=== PATIENT | male | born 1955 | race Caucasian/White ===

== ENCOUNTER 2017-06-15 13:25 | Emergency (ER) | payer BC ==
[2017-06-15 13:34] VITALS: BP 131/76
[2017-06-15] MEDS ORDERED: Oxymetazoline 0.05% Nasal Spray 15 ML Bottle NAS ONE (13:40)
--- NOTE | 2017-06-15 14:20 | EDM.PDOC ---
ED HPI GENERAL MEDICAL PROBLEM - General Chief Complaint: ENT Problem Stated Complaint: NOSE BLEED Time Seen by Provider: 06/15/17 13:31 Source of Information: Reports: Patient, Family, RN History Limitations: Reports: No Limitations - History of Present Illness INITIAL COMMENTS - FREE TEXT/NARRATIVE: Patient had had multiple recurrent nose bleeds over the last few months. He was seen in clinic here two weeks ago and had his nose cauterized and packed. He did fairly well for awhile but yesterday had a nosebleed he was able to stop with packing at home. He started bleedinga again at about 8 this morning and has been unable to get it to stop even with packing at home. He is spitting out clots and has both side of nose packed with gauze. He has not been seen by ENT yet. Onset: Today, Sudden Onset Date: 06/15/17 Onset Time: 08:00 Duration: Hour(s):, Getting Worse, Heavy, Recurring Location: Reports: Other (nose) Quality: Reports: Dull Severity: Mild Improves with: Reports: None Worsens with: Reports: None Context: Reports: Other (recurrent nosebleeds ) Associated Symptoms: Reports: No Other Symptoms Treatments FINANCIAL INTERN: Reports: Other (see below) (packing nose at home) - Related Data Allergies Allergy/AdvReac Type Severity Reaction Status Date / Time No Known Allergies Allergy Verified 06/15/17 13:26 Home Meds: Home Meds Glucosamine Sulfate 2KCl [Glucosamine] 1 tab PO DAILY 12/28/14 [History] Lisinopril [Lisinopril] 20 mg PO DAILY 12/28/14 [History] atorvaSTATin [Lipitor] 40 mg PO DAILY 02/23/15 [History] Cholecalciferol (Vitamin D3) [Vitamin D] 5,000 unit PO DAILY 10/22/15 [History] Metoprolol Succinate [Toprol XL] 100 mg PO DAILY 02/14/17 [History] Sacubitril/Valsartan [Entresto 49 mg-51 mg Tablet] 1.5 tab PO BID 05/30/17 [ History] Triamterene/Hydrochlorothiazid [Triamterene-HCTZ 37.5-25 MG] 37.5 cap PO ASDIRECTED 05/30/17 [History] cloNIDine [Catapres] 0.1 mg PO BID 05/30/17 [History] Aspirin 325 mg PO DAILY 06/15/17 [History] Multivitamin [One Daily] 1 each PO DAILY 06/15/17 [History] Past Medical History Cardiovascular History: Reports: Pacemaker Gastrointestinal History: Reports: Hiatal Hernia Musculoskeletal History: Reports: Back Pain, Chronic - Past Surgical History HEENT Surgical History: Reports: Other (See Below) Other HEENT Surgeries/Procedures: nose bleeds Cardiovascular Surgical History: Reports: Cardiac Ablation GI Surgical History: Reports: Nellie Fundoplication Social & Family History - Tobacco Use Smoking Status *Q: Never Smoker Second Hand Smoke Exposure: No - Caffeine Use Caffeine Use: Reports: None - Recreational Drug Use Recreational Drug Use: No ED ROS ENT - Review of Systems Review Of Systems: See Below Constitutional: Reports: No Symptoms HEENT: Reports: Nosebleed, Nose Pain, Other (spitting out blood clots from throat from the nose bleed) Respiratory: Reports: No Symptoms Cardiovascular: Reports: No Symptoms Endocrine: Reports: No Symptoms GI/Abdominal: Reports: No Symptoms : Reports: No Symptoms Musculoskeletal: Reports: No Symptoms Skin: Reports: No Symptoms Neurological: Reports: No Symptoms Psychiatric: Reports: No Symptoms Hematologic/Lymphatic: Reports: No Symptoms Immunologic: Reports: No Symptoms ED EXAM, ENT - Physical Exam Exam: See Below Exam Limited By: No Limitations General Appearance: Alert, WD/WN, No Apparent Distress Ears: Normal External Exam Nose: Active Bleeding (Active bleeding from right nares with large clots in both nares and going down the back of his throat. Unable to directly visualize area of bleeding but suspect it is a posterior bleed.) Mouth/Throat: Normal Inspection, Other (blood in mouth and on lips from nose bleed.) Head: Atraumatic, Normocephalic Neck: Normal Inspection Respiratory/Chest: No Respiratory Distress, Lungs Clear Cardiovascular: Normal Peripheral Pulses, Regular Rate, Rhythm (Male) Exam: Deferred Rectal (Males) Exam: Deferred Neurological: Alert, Oriented, CN II-XII Intact, Normal Cognition, Normal Gait Psychiatric: Normal Affect, Normal Mood Skin: Warm, Dry, Intact, Normal Color, No Rash ED ENT PROCEDURES - Epistaxis Procedure Recent anticoagulants/antiplatlets: No (just aspirin) Uncontrolled HTN: No Recent septal/nasal surgery: No Site of bleeding: Right Nare Clearing of clots: Other (manual removal with gauze, qtips and alligator forceps from nares) Topical Meds: Other (2 x 2 soaked in afrin as a vasocontricting agent inserted in right nostril for two minutes prior to packing) Ice pack to area: No Anterior Packing: Other (merocel tampon moistened with water after insertion resulted in control of the bleeding. Gauze mustache applied as well.) Course - Vital Signs Last Recorded V/S: Last Vital Signs Temp 36.3 C 06/15/17 13:31 Pulse 61 06/15/17 13:31 Resp 18 06/15/17 13:31 BP 131/76 06/15/17 13:31 Pulse Ox 97 06/15/17 13:31 - Orders/Labs/Meds Meds: Medications Discontinued Medications Generic Name Dose Route Start Last Admin Trade Name Isaiq PRN Reason Stop Dose Admin Oxymetazoline HCl 1 ml 06/15/17 13:40 06/15/17 13:41 Afrin Original 0.05% Nasal [place] MAURI 06/15/17 13:41 1 spray ONETIME ONE Administration - Re-Assessments/Exams Free Text/Narrative Re-Assessment/Exam: 06/15/17 15:03 Patient evaluated in ER. Merocel tampon applied in right nares and moistened with several ccs of water. Patient observed in ER another 45 minutes to make sure the bleeding had stoppled. 4 x 4 gauze mustache applied and had to be changed due to becoming saturated. The second one did not have much blood on it so bleeding appears to be controlled for now. I contacted [facility] and they spoke to interventional nurse ENT. He indicated if bleeding could be controlled, patient should call for an ENT appointment tomorrow. If bleeding not able to be stopped, we could transfer pt to the ER at [facility] in [facility]. Discussed this with the patient and hs . As the bleeding appears to have stopped, they will go home and call the ENT clinic in the morning. I advised them if the bleed restarts during the night, their best action would be to go directly to the ER at [facility] where ENT is available for definitive treatment. Patient and voiced understanding. No further bleeding re- ocurred during their ER stay. The voiced understand and agreed with treatment plan. Departure - Departure Time of Disposition: 14:55 Disposition: Home, Self-Care Condition: Good Clinical Impression: Epistaxis, recurrent - Discharge Information Forms: ED Department Discharge Additional Instructions: Reinforce nasal packing as needed if it soaks through. Call [facility] in [facility] at 8 am on Friday at [phone]. The location is [address] in [facility]. Tell them you have multiple nosebleeds over the last few months which have had to be packed and cauterized. You were seen in the ER in [place] today and were packed. We contacted [facility] in [facility] and the ENT indicated you should be seen in clinic on Friday [facility].
== END 2017-06-15 14:50 | disposition home or self-care (01) ==
LOC: CC.ED 13:25
DX: R04.0 Epistaxis (principal)
CPT/HCPCS: 30905; 99282

== ENCOUNTER 2023-06-19 14:29 | Inpatient (IN) | payer MEDICARE, OTHER ==
[2023-06-19 14:51] LABS: BASOPHILS ABSOLUTE AUTO 0.03 10^3/uL (0.00-0.50); BASOPHILS PERCENT AUTO 0.2 % (0-1); EOSINOPHILS ABSOLUTE AUTO 0.01 10^3/uL (0.00-1.50); EOSINOPHILS PERCENT AUTO 0.1 % (0-6); HEMATOCRIT 25.4 % (42.0-52.0); HEMOGLOBIN 7.5 g/dL (14.0-18.0); IMMATURE GRAN ABSOLUTE AUTO 0.06 10^3/uL (0.00-0.49); IMMATURE GRAN PERCENT AUTO 0.3 % (0.0-4.9); LYMPHOCYTES ABSOLUTE AUTO 0.46 10^3/uL (0.60-5.00); LYMPHOCYTES PERCENT AUTO 2.4 % (24-44); MEAN CORPUSCULAR HEMOGLOBIN 18.4 pg (27.0-32.0); MEAN CORPUSCULAR HGB CONC 29.5 g/dL (32.0-36.0); MEAN CORPUSCULAR VOLUME 62.4 fL (83.0-97.0); MONOCYTES ABSOLUTE AUTO 1.52 10^3/uL (0.00-1.50); NEUTROPHILS ABSOLUTE AUTO 16.97 x10^3/uL (1.80-8.00); PLATELET COUNT,PLT 232 10^3/uL (150-400); RED BLOOD CELL COUNT 4.07 x10^6/uL (4.50-6.00); WHITE BLOOD CELL COUNT,WBC 19.1 10^3/uL (4.0-11.0)
[2023-06-19 14:59] LABS: BLOOD UREA NITROGEN,BUN 26 mg/dL (7-18); C-REACTIVE PROTEIN 11.16 mg/dL (<=0.30); CALCIUM 8.6 mg/dL (8.4-10.1); CARBON DIOXIDE,CO2 29 mmol/L (21-32); CHLORIDE,CL 97 mEq/L (98-106); CREATININE 1.3 mg/dL (0.7-1.3); GLUCOSE RANDOM 115 mg/dL (75-99); POTASSIUM,K 3.9 mEq/L (3.5-5.0); SODIUM,NA 133 mEq/L (136-145)
[2023-06-19 15:00] LABS: ESTIMATED GFR 60 mL/min (>=60)
[2023-06-19] MEDS ORDERED: Furosemide 20 MG/2 ML VIAL IVPUSH ONE (17:14)
[2023-06-19] MEDS ORDERED: Acetaminophen 325 MG Tab PO ONE (17:14)
[2023-06-19] MEDS ORDERED: Sodium Chloride 0.9% 250 ML IV SCH (17:15)
[2023-06-19] MEDS ORDERED: Ondansetron 4 MG/2 ML SDV IV PRN (17:20)
[2023-06-19] MEDS ORDERED: Ondansetron 4 MG Tab.DIS PO PRN (17:20)
[2023-06-19] MEDS ORDERED: Acetaminophen 325 MG Tab PO PRN (17:20)
[2023-06-19] MEDS ORDERED: Nirmatrelvir/Ritonavir 150 MG/100 MG Dose Pack PO SCH (17:30)
[2023-06-19] MEDS ORDERED: Non-Formulary Medication 1 Each (Magnesium Oxide [Magnesium] 500 MG Capsule) PO SCH (17:30)
[2023-06-19] MEDS ORDERED: Iopamidol 755 Mg/ML 100 ML Bottle IVPUSH ONE (17:54)
[2023-06-19] MEDS ORDERED: Piperacillin/Tazobactam 4.5 GM in Sodium Chloride 0.9% 100 ML IV ONE (19:41)
[2023-06-19] MEDS ORDERED: VALSARTAN PO SCH (20:00)
[2023-06-19] MEDS ORDERED: [UNRECOGNIZED DRUG - OTHER] PO SCH (20:00)
[2023-06-19] MEDS ORDERED: SACUBITRIL PO SCH (20:00)
[2023-06-19] MEDS: Apixaban 5 MG Tab PO SCH (20:44)
[2023-06-20] MEDS: Piperacillin/Tazobactam 3.375 GM in Sodium Chloride 0.9% 100 ML IV SCH ×3 (02:56→14:18)
[2023-06-20 03:16] LABS: APPEARANCE,URINE CLEAR (CLEAR); BILIRUBIN,URINE NEGATIVE (NEGATIVE); COLOR,URINE YELLOW (YELLOW); GLUCOSE,URINE NEGATIVE (NEGATIVE); KETONES,URINE 15 mg/dL (NEGATIVE); LEUKOCYTE ESTERASE,URINE NEGATIVE (NEGATIVE); NITRITE,URINE NEGATIVE (NEGATIVE); OCCULT BLOOD,URINE NEGATIVE (NEGATIVE); PH,URINE 5.5 (4.5-8.0); PROTEIN,URINE 30 mg/dL (NEGATIVE)
[2023-06-20 03:21] LABS: BACTERIA,URINE NOT SEEN /HPF (NOT SEEN); EPITHELIAL CELLS,URINE NOT SEEN /HPF (NOT SEEN); MUCUS,URINE OCCASIONAL /HPF (NOT SEEN); RBC,URINE NOT SEEN /HPF (0-5); WBC,URINE NOT SEEN /HPF (0-5)
[2023-06-20 07:18] LABS: BASOPHILS ABSOLUTE AUTO 0.03 10^3/uL (0.00-0.50); BASOPHILS PERCENT AUTO 0.2 % (0-1); EOSINOPHILS ABSOLUTE AUTO 0.01 10^3/uL (0.00-1.50); EOSINOPHILS PERCENT AUTO 0.1 % (0-6); HEMATOCRIT 26.8 % (42.0-52.0); HEMOGLOBIN 8.3 g/dL (14.0-18.0); IMMATURE GRAN ABSOLUTE AUTO 0.04 10^3/uL (0.00-0.49); IMMATURE GRAN PERCENT AUTO 0.3 % (0.0-4.9); LYMPHOCYTES ABSOLUTE AUTO 0.48 10^3/uL (0.60-5.00); LYMPHOCYTES PERCENT AUTO 3.7 % (24-44); MEAN CORPUSCULAR VOLUME 64.7 fL (83.0-97.0); MONOCYTES ABSOLUTE AUTO 1.18 10^3/uL (0.00-1.50); MONOCYTES PERCENT AUTO 9.2 % (0-10); NEUTROPHILS ABSOLUTE AUTO 11.09 x10^3/uL (1.80-8.00); NEUTROPHILS PERCENT AUTO 86.5 % (41-71); PLATELET COUNT,PLT 189 10^3/uL (150-400); RED BLOOD CELL COUNT 4.14 x10^6/uL (4.50-6.00); WHITE BLOOD CELL COUNT,WBC 12.8 10^3/uL (4.0-11.0)
[2023-06-20 07:44] LABS: BILIRUBIN TOTAL 1.2 mg/dL (0.0-1.0); C-REACTIVE PROTEIN 13.51 mg/dL (<=0.30); CALCIUM 8.2 mg/dL (8.4-10.1); CREATININE 1.2 mg/dL (0.7-1.3); EST CRCL DRUG DOSING (CG) 63.62 mL/min; POTASSIUM,K 3.5 mEq/L (3.5-5.0); PROTEIN TOTAL,TP 6.3 g/dL (6.4-8.2)
[2023-06-20] MEDS ORDERED: Ascorbic Acid 500 MG Tab PO SCH (08:00)
[2023-06-20] MEDS ORDERED: Metoprolol Succinate 100 MG Tab.ER PO SCH (08:00)
[2023-06-20] MEDS ORDERED: Aspirin 81 MG Tab.EC PO SCH (08:00)
[2023-06-20] MEDS ORDERED: Hydrochlorothiazide/Triamterene 25-37.5 Tab PO SCH (08:00)
[2023-06-20] MEDS ORDERED: Multivitamin Tab PO SCH (08:00)
[2023-06-20] MEDS ORDERED: atorvaSTATin 20 MG Tab PO SCH (08:00)
[2023-06-20] MEDS ORDERED: Amiodarone 200 MG Tab PO SCH (08:00)
[2023-06-20] MEDS ORDERED: Cholecalciferol (Vitamin D3) 25 MCG Tab PO SCH (08:00)
[2023-06-20] MEDS: Apixaban 5 MG Tab PO SCH (08:40)
[2023-06-20 12:59] VITALS: BP 135/76; PULSE 60
[2023-06-20] MEDS ORDERED: Pantoprazole 40 MG Vial IVPUSH SCH (15:30)
[2023-06-20 22:41] LABS: % TRANSFERRIN SAT 2.6 % (20.0-50.0)
== END 2023-06-20 16:00 | DRG 177 ==
LOC: CC.FCMC 14:29 → CC.MS 14:29 → UNDOADMIN 15:32 → CC.MS 15:32
PROVIDERS: ADMIT Nurse Practitioner Family; ATTEND Nurse Practitioner Family
PROC: 30233N1 Transfusion of Nonautologous Red Blood Cells into Peripheral Vein, Percutaneous Approach (ICD-10-PCS; principal; 2023-06-19)
DX: U07.1 COVID-19 (principal); J12.82 Pneumonia due to coronavirus disease 2019; I42.9 Cardiomyopathy, unspecified; K92.2 Gastrointestinal hemorrhage, unspecified; C18.2 Malignant neoplasm of ascending colon; S39.012A Strain of muscle, fascia and tendon of lower back, initial encounter; D50.9 Iron deficiency anemia, unspecified; I48.0 Paroxysmal atrial fibrillation; I10 Essential (primary) hypertension; M19.90 Unspecified osteoarthritis, unspecified site; G89.29 Other chronic pain; M54.9 Dorsalgia, unspecified; E78.5 Hyperlipidemia, unspecified; G47.30 Sleep apnea, unspecified; E55.9 Vitamin D deficiency, unspecified; K57.30 Diverticulosis of large intestine without perforation or abscess without bleeding; N40.1 Benign prostatic hyperplasia with lower urinary tract symptoms; R35.1 Nocturia; Z98.890 Other specified postprocedural states; Z87.442 Personal history of urinary calculi; Z79.01 Long term (current) use of anticoagulants; Z95.0 Presence of cardiac pacemaker; Z79.82 Long term (current) use of aspirin; Z79.899 Other long term (current) drug therapy; W19.XXXA Unspecified fall, initial encounter
CPT/HCPCS: 36415; 71046; 72100; 80048; 82728; 83540; 83550; 85025; 85730; 86140; 87804 ×2; U0002; 36430; 74177; 80053; 81001; 86850; 86900; 86901; 86920; 86922; 87040; 87070; 87205; 99223; 99239; A9270-GY; C9113; J1940; J2543; J3490; J7030; P9016; Q9967